=== PATIENT | male | born 1955 | race Caucasian/White ===

== ENCOUNTER → 2020-05-22 10:03 | Outpatient (CLI) | payer OTHER, SELFPAY ==
--- NOTE | ~2020-05-22 | XR_ITS ---
EXAMINATION: XR hand RT min 3V DATE: 05/22/2020 10:26 INDICATION: Right hand pain TECHNIQUE: Posteroanterior, oblique and lateral views of the right hand were obtained. COMPARISON: None. FINDINGS: Alignment is normal. No fracture. Polyarticular osteoarthritis, severe at the triscaphe and third met acarpophalangeal joints with subarticular cystic change at both sides of the joint space. Mild to mod erate osteoarthritis at the second metacarpophalangeal, second distal interphalangeal and fourth prox imal interphalangeal joints. Mild osteoarthritis at the wrist, triscaphe and several of the remaining interphalangeal and metacarpophalangeal joints. Chondrocalcinosis at the wrist joint including at th e triangular fibrocartilage complex. Additional well-defined lucency with thin sclerotic margins at t he ulnar styloid process which could represent additional degenerative cystic change or erosion. Mild soft tissue swelling about the ulnar styloid process. IMPRESSION: 1. Polyarticular osteoarthritis, severe at the triscaphe and third metacarpophalangeal joints. 2. Chondrocalcinosis at the wrist which along the atypical predominance of osteoarthritis at the prev ious noted joint spaces can be seen in the setting of calcium pyrophosphate deposition (CPPD) disease . 3. Soft tissue swelling about the ulnar styloid process where there is a lucency which could represen t degenerative cystic change or an erosion in the setting of an inflammatory or crystalline arthropat hy. Reviewed, dictated and finalized at location B. IMPRESSION: 1. Polyarticular osteoarthritis, severe at the triscaphe and third metacarpopha langeal joints. 2. 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 3. Soft tissue swelling about the ulnar styloid process where there is a lucenc y which could represent degenerative cystic change or an erosion in the setting of an inflammatory or crystalline arthropathy.
== END ==
PROVIDERS: PCP Family Medicine; Visit Provider Physician Assistant
DX: M79.641 Pain in right hand (principal); M15.9 Polyosteoarthritis, unspecified; M11.231 Other chondrocalcinosis, right wrist
CPT/HCPCS: 73130

== ENCOUNTER 2025-01-11 10:39 | Outpatient (CLI) | payer MEDICARE, SELFPAY ==
--- NOTE | 2025-01-11 10:50 | ECG_ITS ---
Test Date: 2025-01-11 11:00:46 Measurements Intervals [place] Rate: 60 P: 49 ID: [id number] QRS: 17 QRSD: 90 T: 113 QT: 430 QTc: 431 Interpretive Statements SINUS RHYTHM WITH FIRST DEGREE AV BLOCK POSSIBLE LEFT ATRIAL ENLARGEMENT CONSIDER INFERIOR INFARCT, AGE INDETERMINATE ST-T WAVE ABNORMALITY IN ANTEROLAT/HIGH LAT LEADS- CONSIDER ISCHEMIA ABNORMAL ECG No previous ECG available for comparison Electronically Signed On 01-11-2025 11:10:06 CDT by Bipin Tenorio D.O.
[2025-01-11 11:19] LABS: Basophils Absolute Auto 0.1 K/mm3 (0.0-0.1); Eosinophils Absolute Auto 0.5 K/mm3 (0-0.3); Eosinophils Percent Auto 8.2 % (0-4.4); Hematocrit 43.1 % (42.0-52.0); Hemoglobin 13.9 g/dL (14.0-18.0); Immature Granulocyte Absolute 0.01 K/mm3 (0.00-0.031); Immature Granulocyte Percent A 0.2 % (0-0.5); Lymphocytes Absolute Auto 1.45 K/mm3 (0.9-3.2); Lymphocytes Percent Auto 23.9 % (18.3-44.2); Mean Corpuscular HGB Conc 32.3 g/dl (32-36); Mean Corpuscular Hemoglobin 31.3 pg (26-34); Mean Corpuscular Volume 97.1 fl (80-100); Mean Platelet Volume 10.5 fl (7.4-10.4); Monocytes Absolute Auto 0.6 K/mm3 (0.1-0.6); Monocytes Percent Auto 9.1 % (2.6-8.5); Neutrophils Absolute Auto 3.5 K/mm3 (1.3-6.7); Neutrophils Percent Auto 57.6 % (45.5-73.1); Platelet Count Result 253 k/mm3 (150-375); Red Blood Count 4.44 M/mm3 (4.6-6.20); Red Cell Distribution Width 13.1 % (11.5-14.5); White Blood Count 6.1 K/mm3 (4.5-10.0)
[2025-01-11 11:20] LABS: Add Urine Microscopic? NO; Appearance Urine Clear (Clear); Bilirubin Urine Negative (Negative); Blood Urine Negative (Negative); Color Urine Yellow (Yellow); Glucose Urine UA Negative (Negative); Ketones Urine Negative (Negative); Leukocyte Esterase Ur Negative LEU/UL (Negative); Nitrate Urine Negative (Negative); Protein Urine Negative (Negative); Specific Grav Ur 1.022 (1.001-1.035); pH Urine 6.5 (5.0-9.0)
--- OUTSIDE RECORDS SUMMARY | 2025-01-11 11:40 | XMS_ITS | Clinical Summary ---
Author Organization [facility] [place] Address [address] [place] [place] [address] Phone Care Team Providers Care Systems Integration Advisor Name Role Phone Luz Elena Cruz PAC Primary Care Pro vider Allergies No known active allergies Medications neomycin-polymy andria-dexamethaso ne (MAXITROL) [id number] SuspensionIndic ations:Abrasion of left cornea, initial encounter Place 1 Drop in left eye 4 times daily. 5 mL 3 Active Additional Information Patient not taking.Reported on 12/13/2023 allopurinol (ZYLOPRIM) 300 MG Tablet TAKE 1 TABLET BY MOUTH EVERY DAY 90 Tablet 3 4 Active atorvastatin (LIPITOR) 10 MG Tablet TAKE 1 TABLET BY MOUTH EVERY DAY 30 Tablet 6 5 Active furosemide (LASIX) 20 MG Tablet TAKE 1 TABLET BY MOUTH EVERY DAY 90 Tablet 5 Active Additional Information Patient taking differently:20 mg Oral DAILY,Indications: Edema, Reported on 10/17/2024 lisinopril (PRINIVIL, ZESTRIL) 20 MG Tablet Take 1 Tablet by mouth daily. 90 Tablet 1 5 Active Active Problems Problem Noted Date Diagnosed Date Psoriatic arthritis 12/13/2023 Psoriasis 12/13/2023 Lung fibrosis 12/13/2023 Peripheral vascular disease 12/13/2023 Abdominal aneurysm 12/13/2023 CAD (coronary artery disease) 03/03/2023 Former smoker 03/01/2023 Hypertension 03/01/2023 Gout 03/01/2023 Resolved Problems Problem Noted Date Diagnosed Date Resolved Date ETOH abuse 03/01/2023 03/03/2023 Atypical pneumonia 03/01/2023 Acute pulmonary edema 03/01/20232022 Congestive heart failure (CHF) 02/28/2023 03/03/2023 Encounters Date Type Department Care Team Description 01/11/2025 Refill [facility] - Internal [facility] - [place] [address] [place] [address] Luz Elena Cruz, PAC Medication Refill 11/30/2024 Refill [facility] - Internal Medicine - [place] [address] [place] [address] Luz Elena Cruz, PAC Medication Refill 10/17/2024 [facility]phone [facility] [address] [place] [address] Terrell Cooley MD Procedure 10/17/2024 Travel 10/16/2024 Refill [facility] [address] [place] [address] Luz Elena Cruz, PAC Medication Refill from Last 3 Months Family History Medical History Relation Name Comments Cancer Father Cancer Mother Relation Name Status Comments Father Mother Social History Tobacco Use Types Packs/Day Years Used Date Smoking Tobacco: Former Cigarettes Smokeless Tobacco: Never Tobacco Cessation:Counseling Given: No Alcohol Use Standard Drinks/Week Comments Not Currently 0 (1 standard drink = 0.6 oz pur e alcohol) rare [facility] Utilities Answer Date Recorded In the past 12 months has [employer], gas, oil, or water [employer] threatened to shut off services in your home? No 12/13/2023 Social Connection and Isolat ion Panel [NHANES] Answer Date Recorded In a typical week, how many times do you talk on the phone with family, friends, or neighbors? More than three times a week 12/13/2023 How often do you get togethe r with friends or relatives? Twice a week 12/13/2023 How often do you attend [facility] or yazidism services? 1 to 4 times per year 12/13/2023 Do you belong to any clubs o r organizations such as worship groups, unions, fraternal or athletic groups, or school groups? Yes 12/13/2023 How often do you attend meet ings of the clubs or organizations you belong to? 1 to 4 times per year 12/13/2023 Are you , , di vorced, , never , or living with a partner? 12/13/2023 AUDIT-C Answer Date Recorded Q1: How often do you have a drink containing alc ohol? Monthly or less 12/13/2023 Q2: How many drinks containi ng alcohol do you have on a typical day when you are drinking? 1 or 2 12/13/2023 Q3: How often do you have si x or more drinks on one occasion? Less than monthly 12/13/2023 Overall Financial Resource Strain (CARDIA) Answe r Date Recorded How hard is it for you to pa y for the very basics like food, housing, medical care, and heating? Somewhat hard 12/13/2023 [facility] of Occupat ional Health - Occupational Stress Questionnaire Answer Date Recorded Do you feel stress - tense, restless, nervous, or anxious, or unable to sleep at night because your mind is troubled all the time - these days? Not at all 12/13/2023 Exercise Vital Sign Answer Date Recorde d On average, how many days pe r week do you engage in moderate to strenuous exercise (like a brisk walk)? 3 days 12/13/2023 On average, how many minutes do you engage in exercise at this level? 60 min 12/13/2023 Hunger Vital Sign Answer Date Recorded Within the past 12 months, y ou worried that your food would run out before you got the money to buy more. Never true 12/13/19 24 Within the past 12 months, t he food you bought just didn't last and you didn't have money to get more. Never true 12/13/2023 PRAPARE - Transportation Answer Date Re corded In the past 12 months, has l ack of transportation kept you from medical appointments or from getting medications? No 01/2024 In the past 12 months, has l ack of transportation kept you from meetings, work, or from getting things needed for daily living? No 12/13/2023 Housing Stability Vital Sign Answer Sharif e Recorded In the last 12 months, was t here a time when you were not able to pay the mortgage or rent on time? No 12/13/2023 In the last 12 months, how many places have you lived? 1 12/13/2023 In the last 12 months, was t here a time when you did not have a steady place to sleep or slept in a alf (including now)? No 12/13/2023 Sexually Active Control Partners Comments Yes None Female Sex and Gender Information Value Date Recorded Sex Assigned at Not on file Legal Sex Male 12:09 PM CDT Gender Identity Not on file Sexual Orientation Not on file Last Filed Vital Signs Vital Sign Reading Time Taken Comments Blood Pressure 150/100 12/13/2023 11:39 AM CDT Pulse 87 12/13/2023 11:39 AM CDT Temperature 36.6 C (97.8 F) 12/13/2023 11:39 AM CDT Respiratory Rate 12 12/13/2023 11:39 AM CDT Oxygen Saturation 98% 12/13/2023 11:39 AM CDT Inhaled Oxygen Concentration - - Weight 112.5 kg (248 lb) 10/17/2024 4:12 PM CDT Height 193 cm (6' 4) 10/17/2024 4:12 PM CDT Body Mass Index 30.19 10/17/2024 4:12 PM CDT Plan of Treatment Health Maintenance Due Date Last Done Comments Hepatitis C Virus (HCV) Screening 1955 TdaP Immunization 1955 Colonoscopy 2002 Colorectal Cancer Screening 2002 Cologuard 2007 Immunochemical Fecal Occult Blood 2007 Pneumococcal Immunization (5 0+ years) (1 of 1 - PCV) 2007 Zoster Immunization (1 of 2) 2007 Respiratory Syncytial Virus (RSV) Immunization (Adult) (1 - Risk 60-74 years 1-dose series) 2017 AAA Screening Ultrasound 2022 SARS-COV-2 Immunization (3 - season) 2024 10/24/2020, 10/03/2020 Influenza Immunization (Seas on Ended) 2025 05/09/2020, 07/21/2018 PSA Discussion Completed 04/13/2023 Hepatitis B Immunization Aged Out No longer eligible based on patient's age to complete this topic Human Papillomavirus (HPV) Immunization Aged Out No longer eligible b ased on patient's age to complete this topic Meningococcal Immunization (ACWY) Aged Out No longer eligible b ased on patient's age to complete this topic Rotavirus Immunization Aged Out No lo nger eligible based on patient's age to complete this topic Procedures Procedure Name Priority Date/Time Associated Diagnosis Comments PSA SCREEN Routine 04/13/2023 9:08 AM CDT Well adult exam Hypertension, unspecified type Screening for prostate cancer from Last 3 Months or Most Recently Relevant to Health Maintenance Results * PSA SCREEN (04/13/2023 9:08 AM CDT) PSA SCREEN, TOTAL 1.80 <4.00 ng/mL 04/13/2023 3:54 PM CDT [facility] Blood Venipuncture / Unknown 04/13/2023 9:08 AM CDT 04/13/2023 9:08 AM CDT Narrative [facility] - 04/13/2023 3:54 PM CDT [employer] Total PSA assay is a Chemiluminescent Microparticle Immunoassay (CMIA) for the quantitative determination of total PSA (both free PSA and PSA complexed to [id number]) in human serum. Luz Elena Cruz PAC CHEMISTRY ORDERAB LES Final Result [facility] [address] [place] [address] from Last 3 Months or Most Recently Relevant to Health Maintenance Insurance MEDICARE C [employer] Advance Directives * Full Code (Latest Code Status on File) Date Activated Date Inactivated Comments 03/01/2023 12:35 AM 03/03/2023 3:41 PM CPR-Full Tr eatment: FULL ARREST: Attempt Resuscitation/CPR wit intubation and mechanical ventilation. PRE-ARREST: Use entire range of life support measures to stabilize the patient. Care Teams Systems Integration Advisor Relationship Specialty Start Date End Date Luz Elena Curz, TRIPP [address] [place] [address] PCP - General Physician Department Traffic Freight Router 03/29/23
--- OUTSIDE RECORDS SUMMARY | 2025-01-11 11:40 | XMS_ITS | Encounter Summary ---
Author Organization [facility] Address [address] [place] [address] Phone Care Team Providers Care Nutritional Services Director Name Role Phone Luz Elena Cruz Primary Care Pro vider Reason for Visit * Reason Comments Medication Refill Encounter Details Date Type Department Care Team (Late st Contact Info) Description 04/05/2023 [facility]ill [facility] - [place] [address] [place] [phone] Luz Elena Cruz PAC [address] [place] [address] Medication Refill Social History Tobacco Use Types Packs/Day Years Used Date Smoking Tobacco: Former Cigarettes Smokeless Tobacco: Never Alcohol Use Standard Drinks/Week Comments Yes 2 (1 standard drink = 0.6 oz pur e alcohol) Sexually Active Control Partners Comments Yes None Female Sex and Gender Information Value Date Recorded Sex Assigned at Not on file Legal Sex Male 12:09 PM CDT Gender Identity Not on file Sexual Orientation Not on file COVID-19 Exposure Response Date Recorded In the last 10 days, have yo u been in contact with someone who was confirmed or suspected to have Coronavirus/COVID-19? No / Unsure 03/29/2023 1:12 PM CDT documented as of this encounter Plan of Treatment Not on file documented as of this encounter Visit Diagnoses Not on filedocumented in this encounter Care Teams Nutritional Services Director Relationship Specialty Start Date End Date Luz Elena Cruz, TRIPP [address] [address] PCP - General Physician Company Truck Driver 03/29/23 documented as of this encounter
--- OUTSIDE RECORDS SUMMARY | 2025-01-11 11:40 | XMS_ITS | Encounter Summary ---
Author Organization [facility] Address [address] [place] [address] Phone Care Team Providers Care Small Products I Assembler Name Role Phone Luz Elena Cruz PAC Primary Care Pro vider Reason for Visit * Reason Comments Medication Refill Encounter Details Date Type Department Care Team (Late st Contact Info) Description 12/14/2023 Refill [facility] - [place] [address] [place] [address] Luz Elena Cruz, PAC [address] [place] [address] Medication Refill Social History Tobacco Use Types Packs/Day Years Used Date Smoking Tobacco: Former Cigarettes Smokeless Tobacco: Never Alcohol Use Standard Drinks/Week Comments Yes 2 (1 standard drink = 0.6 oz pur e alcohol) [facility] Utilities Answer Date Recorded In the past 12 months has [employer], [employer], oil, or water [employer] threatened to shut off services in your [...] week 12/13/2023 How often do you attend chur or muslim services? 1 to 4 times per year 12/13/2023 Do you belong to any clubs o r organizations such as zoroastrianism groups, unions, fraternal or athletic groups, or [...] medical care, and heating? Somewhat hard 12/13/2023 [facility] [place] of Occupat ional Health - Occupational Stress [...] place to sleep or slept in a half-way (including now)? No 12/13/2023 Sexually Active Control Partners Comments Yes None Female Sex and Gender Information Value Date Recorded Sex Assigned at Not on file Legal Sex Male 12:09 PM CDT Gender Identity Not on file Sexual Orientation Not on file documented as of this encounter Miscellaneous Notes * Telephone Encounter - Ayla Payton RN - 12/14/2023 9:58 AM CDT Medication(s) refilled and signed per [facility] Medication Refill Standing Order for Pediatricand Adult Patients. Requested Prescriptions Pending Prescriptions Disp Refills furosemide (LASIX) 20 MG Tablet [Pharmacy Med Name: FUROSEMIDE 20 MG TABLET] 90 Tablet 0 Sig: TAKE 1 TABLET BY MOUTH EVERY DAY Diuretics Protocol Passed - 12/14/2023 12:49 AM Passed - Serum potassium on record in past 12 months POTASSIUM Date Value Ref Range Status 11/28/2023 3.7 3.5 - 5.1 mmol/L Final Passed - Serum sodium on record in past 12 months SODIUM Date Value Ref Range Status 11/28/2023 138 136 - 145 mmol/L Final Passed - Blood pressure on record in past 12 months Clinician-entered: BP Readings from Last 3 Encounters: 12/13/23 (!) 150/100 11/28/23 (!) 154/97 04/16/23 132/78 Patient-entered: No data recorded Passed - Visit with relevant provider in past 12 months or upcoming 90 days Recent Visits Date Type Provider Dept 12/13/23 Office Visit Luz Elena Cruz PAC [facility] 03/29/23 Office Visit Luz Elena Cruz PAC [facility] [place] Showing recent visits within past 365 days and meeting all other requirements Future Appointments Date Type Provider Dept 01/10/24 Appointment Luz Elena Cruz PAC [facility] [place] Showing future appointments within next 90 days and meeting all other requirements Passed - GFR on record in past 12 months GFR, EST. NONAFRICAN Date Value Ref Range Status 11/28/2023 >60 >=60 Final Refused Prescriptions Disp Refills metoprolol tartrate (LOPRESSOR) 25 MG Tablet [Pharmacy Med Name: METOPROLOL TARTRATE 25 MG TAB] 180Tablet 0 Sig: TAKE 1 TABLET BY MOUTH TWICE A DAY Beta-Blockers Protocol Failed - 12/14/2023 12:49 AM Failed - Active on medication list Passed - BP on record in the past year Clinician-entered: BP Readings from Last 3 Encounters: 12/13/23 (!) 150/100 11/28/23 (!) 154/97 04/16/23 132/78 Patient-entered: No data recorded Passed - Visit with relevant provider in past 12 months or upcoming 90 days Recent Visits Date Type Provider Dept 12/13/23 Office Visit Luz Elena Cruz PAC [facility] [place] 03/29/23 Office Visit Luz Elena Cruz PAC [facility] [place] Showing recent visits within past 365 days and meeting all other requirements Future Appointments Date Type Provider Dept 01/10/24 Appointment Luz Elena Cruz PAC [facility] [place] Showing future appointments within next 90 days and meeting all other requirements documented in this encounter Plan of Treatment Not on file documented as of this encounter Visit Diagnoses Not on filedocumented in this encounter Care Teams Small Products I Assembler Relationship Specialty Start Date End Date Luz Elena Cruz PAC [address] [place] [address] PCP - General Physician Glue Wheel Operator 03/29/23 documented as of this encounter
--- OUTSIDE RECORDS SUMMARY | 2025-01-11 11:40 | XMS_ITS | Encounter Summary ---
Author Organization [facility] Address [address] [place] [address] Phone Care Team Providers Care Semiconductor Wafers Saw Operator Name Role Phone Luz Elena Cruz PAC Primary Care Pro vider Reason for Visit * Reason Comments Medication Refill Encounter Details Date Type Department Care Team (Late st Contact Info) Description 01/11/2025 Refill [facility] - [place] [address] [place] [address] Luz Elena Cruz, PAC [address] [place] [address] Medication Refill Social History Tobacco Use Types Packs/Day Years Used Date Smoking Tobacco: Former Cigarettes Smokeless Tobacco: Never Alcohol Use Standard Drinks/Week Comments Not Currently 0 (1 standard drink = 0.6 oz pur e alcohol) rare [facility] Utilities Answer Date Recorded In the past 12 months has [employer], [employer], [employer], or water [email or web address] threatened to shut off services in your [...] How often do you attend chur or moravian services? 1 to 4 times per year 12/13/2023 Do you belong to any clubs o r organizations such as mormon groups, unions, fraternal or athletic groups, or [...] medical care, and heating? Somewhat hard 12/13/2023 [facility] [place] of Occupat ional Health - Occupational Stress [...] place to sleep or slept in a senior living (including now)? No 12/13/2023 Sexually Active Control Partners Comments Yes None Female Sex and Gender Information Value Date Recorded Sex Assigned at Not on file Legal Sex Male 12:09 PM CDT Gender Identity Not on file Sexual Orientation Not on file documented as of this encounter Miscellaneous Notes * Telephone Encounter - Ayla Payton RN - 01/11/2025 11:06 AM CDT 12/13/23 LAST OV Medication failed the protocol, provider to review and approve the medication order if appropriate. Requested Prescriptions Pending Prescriptions Disp Refills furosemide (LASIX) 20 MG Tablet [Pharmacy Med Name: FUROSEMIDE 20 MG TABLET] 90 Tablet 0 Sig: TAKE 1 TABLET BY MOUTH EVERY DAY Diuretics Protocol Failed - 01/11/2025 11:06 AM Failed - Serum potassium on record in past 12 months POTASSIUM Date Value Ref Range Status 11/28/2023 3.7 3.5 - 5.1 mmol/L Final Failed - Serum sodium on record in past 12 months SODIUM Date Value Ref Range Status 11/28/2023 138 136 - 145 mmol/L Final Failed - Blood pressure on record in past 12 months Clinician-entered: BP Readings from Last 3 Encounters: 12/13/23 (!) 150/100 11/28/23 (!) 154/97 04/16/23 132/78 Patient-entered: No data recorded Failed - Visit with relevant provider in past 12 months or upcoming 90 days Recent Visits No visits were found meeting these conditions. Showing recent visits within past 365 days and meeting all other requirements Future Appointments No visits were found meeting these conditions. Showing future appointments within next 90 days and meeting all other requirements Failed - GFR on record in past 12 months GFR, EST. NONAFRICAN Date Value Ref Range Status 11/28/2023 >60 >=60 Final documented in this encounter Plan of Treatment Not on file documented as of this encounter Visit Diagnoses Not on filedocumented in this encounter Care Teams Semiconductor Wafers Saw Operator Relationship Specialty Start Date End Date Luz Elena Cruz, TRIPP [address] [place] [address] PCP - General Physician Scientific Recruiter 03/29/23 documented as of this encounter
[2025-01-11 11:47] LABS: Anion Gap 4 mmol/L (4-12); Blood Urea Nitrogen 26 mg/dL (9-20); Calcium 9.5 mg/dL (8.4-10.2); Carbon Dioxide 32 mmol/L (22-30); Chloride 104 mmol/L (98-107); Estimated Glomerular Filt Rate > 60; Glucose 93 mg/dL (65-110); Sodium 140 mmol/L (137-145)
== END 2025-01-11 10:40 | disposition home or self-care (01) ==
PROVIDERS: PCP Physician Assistant; Visit Provider Orthopaedic Surgery
DX: R73.03 Prediabetes (principal); I10 Essential (primary) hypertension; R53.83 Other fatigue
CPT/HCPCS: 36415; 80048; 81003; 85025; 93005

== ENCOUNTER 2025-07-19 08:54 | Outpatient (CLI) | payer MEDICARE, SELFPAY ==
--- NOTE | ~2025-07-19 | US_ITS ---
EXAM/PROCEDURE: US art doppler w press LE BI HISTORY: M17.12 - Unilateral primary osteoarthritis, left knee COMPARISON: None available. TECHNIQUE: LUZ MARIA FINDINGS: Systolic pressures for the right and left brachial arteries are 138 and 120 Segmental pressure readings as follows: Distal thigh: 162 and 136 Popliteal: 177 and 170 Dorsalis pedis: 131 and 147 Posterior tibial: 163 and 158 Great toe: 111 and 89 Right and left ABIs are 1.18 and 1.14 respect Right and left TBI's are 0.80 and 0.64 Plethysmography appears within normal limits. IMPRESSION: Both ABIs within normal limits. Reviewed, dictated and finalized at location A. ECTOR PLATING
== END 2025-07-19 08:55 | disposition home or self-care (01) ==
PROVIDERS: PCP Physician Assistant; Visit Provider Orthopaedic Surgery
DX: I73.9 Peripheral vascular disease, unspecified (principal); M17.12 Unilateral primary osteoarthritis, left knee
CPT/HCPCS: 93923